=== PATIENT | female | born 1960 | race African-American/Black ===

== ENCOUNTER → 2017-05-18 | Outpatient (CLI) | payer OTHER ==
[~2017-05-18] MED LIST: CELEXA20 MG PO; EASY-LAX100 MG PO; FENOFIBRATE145 MG PO; GABAPENTIN600 MG PO; HYDROCHLOROTHIA25 MG PO; HYDROCODON-ACE1 EAC5 PO; LISINOPRIL10 MG PO; OMEPRAZOLE40 M1 PO; REMERON15 MG PO; VITAMIN D250000 UNIT PO
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
== END | disposition home or self-care (01) ==
LOC: CRAD 12:04
DX: R07.9 Chest pain, unspecified (principal); S92.912A Unspecified fracture of left toe(s), initial encounter for closed fracture; M41.9 Scoliosis, unspecified
CPT/HCPCS: 71020; 73630